=== PATIENT | male | born 1975 | race Caucasian/White ===

== ENCOUNTER 2018-04-12 13:11 | Emergency (ER) | payer OTHER, BC ==
[2018-04-12 13:57] VITALS: RESP 16; TEMP 97.9
[2018-04-12 15:26] VITALS: O2SAT 99
[2018-04-12 15:27] VITALS: BP 140/83; PULSE 88
== END 2018-04-12 15:23 | disposition home or self-care (01) | DRG 103 ==
LOC: ED 13:11
DX: F07.81 Postconcussional syndrome (principal)
CPT/HCPCS: 70450; 99282; 99283